=== PATIENT | female | born 1995 | race Hispanic/Latino ===

== ENCOUNTER 2019-02-26 12:13 | Inpatient (IN) | payer SELFPAY ==
[2019-02-26 13:44] LABS: #Eosinphils 0.3 thou/uL (0.0-0.7); #Monocytes 0.3 thou/uL (0.11-0.59); #Neutrophils 8.1 thou/uL (1.40-6.50); %Basophils 0.1 % (0.0-1.0); %Eosinophils 2.7 % (0.0-10.0); %Lymphocytes 10.4 % (21.0-51.0); %Monocytes 3.3 % (0.0-10.0); %Neutrophils 83.6 % (42.0-75.0); Hemoglobin 6.3 g/dL (12.0-16.0); Mean Corpuscular HGB CONC 29.9 g/dL (32.0-36.0); Mean Corpuscular Hemoglobin 19.1 pg (27.0-31.0); Mean Corpuscular Volume 63.9 fL (78.0-98.0); Mean Platelet Volume 6.7 fL (7.4-10.4); Platelet Count 127 thou/uL (130-400); RBC Distribution Width 20.2 % (11.5-14.5); White Blood Cell (WBC) Count 9.6 thou/uL (4.8-10.8)
[2019-02-26 13:51] LABS: BHCG - Serum Negative (NEGATIVE); Pregs Control Background? CLEAR/WHITE (CLR/WHITE); Pregs Control Bar Appear? YES (CONTROL BAR)
[2019-02-26 14:03] LABS: ALT (SGPT) 13 U/L (8-55); AST (SGOT) 17 U/L (5-34); Albumin 3.8 g/dL (3.5-5.0); Alkaline Phosphatase 115 U/L (40-110); Anion Gap 10 mmol/L (10-20); BUN (Urea Nitrogen) 14 mg/dL (7.0-18.7); Calc. Creatinine Clearance 0 mL/min (70-130); Calcium 8.8 mg/dL (7.8-10.44); Carbon Dioxide 24 mmol/L (22-29); Chloride 107 mmol/L (98-107); Estimated GFR-MDRD Greater than 90; Globulin 3.3 g/dL (2.4-3.5); Glucose 126 mg/dL (70-105); Potassium 4.1 mmol/L (3.5-5.1); Protein, Total 7.1 g/dL (6.0-8.3); Sodium 137 mmol/L (136-145)
[2019-02-26 14:04] LABS: Anisocytosis SLIGHT = 6-15 cells (100X) (0-5/hpf); Elliptocytes SLIGHT = 2-5 cells (100X) (0-1/hpf); Hypochromia SLIGHT = 6-15 cells (100X) (0-5/hpf); Microcytosis MODERATE=15-30 cells (100X) (0-5/hpf)
[2019-02-26 14:05] LABS: Platelet Morphology Comment Appears Decreased
[2019-02-26 14:25] LABS: Hemoglobin 5.3 g/dL (12.0-16.0)
[2019-02-26 15:51] LABS: Bilirubin Small (Negative); Blood, Urine Large (Negative); Glucose, Urine (Dipstick) Negative (Negative); Leukocyte Negative (Negative); Nitrite Negative (Negative); Protein, Urine (Dipstick) > or equal to 300 mg/dL (Neg-Trace)
[2019-02-26 15:57] LABS: Clarity Cloudy (Clear)
[2019-02-26 16:01] LABS: Bacteria/HPF Rare-Few HPF (None Seen); RBC/HPF Greater than 50 HPF (0-3); WBC/HPF 0-3 HPF (0-3)
[2019-02-26] MEDS ORDERED: Tranexamic Acid 650 MG TAB PO SCH (18:15)
[2019-02-26] MEDS ORDERED: Ondansetron ODT 4 MG TAB PO PRN (19:43)
[2019-02-26] MEDS ORDERED: Ondansetron ODT 4 MG TAB SL PRN (19:57)
[2019-02-26] MEDS ORDERED: Acetaminophen 325 MG TAB PO PRN (19:57)
[2019-02-26] MEDS ORDERED: Ondansetron PF 4 MG/2 ML Vial IVP PRN (19:57)
[2019-02-26] MEDS ORDERED: HYDROcodone/Acetaminophen 5/325 mg Tablet PO PRN ×2 (19:57)
[2019-02-26] MEDS: Sodium Chloride 0.9% 1,000 ML IV SCH (21:03)
[2019-02-26 21:10] VITALS: BMI 38.5
[2019-02-27] MEDS: Sodium Chloride 0.9% 1,000 ML IV SCH (05:42)
[2019-02-27] MEDS ORDERED: FLU VACC QS2019-20(6MOS UP)/PF 60 MCG/0.5 ML SYRINGE IM ONE (09:00)
[2019-02-27 10:14] LABS: #Eosinphils 0.2 thou/uL (0.0-0.7); #Lymphocytes 0.9 thou/uL (1.20-3.40); #Monocytes 0.2 thou/uL (0.11-0.59); #Neutrophils 2.3 thou/uL (1.40-6.50); %Basophils 0.5 % (0.0-1.0); %Eosinophils 5.5 % (0.0-10.0); %Lymphocytes 24.8 % (21.0-51.0); %Monocytes 5.1 % (0.0-10.0); %Neutrophils 64.2 % (42.0-75.0); Anisocytosis SLIGHT = 6-15 cells (100X) (0-5/hpf); Elliptocytes SLIGHT = 2-5 cells (100X) (0-1/hpf); Hemoglobin 7.3 g/dL (12.0-16.0); MDiff Complete? YES; Mean Corpuscular HGB CONC 32.2 g/dL (32.0-36.0); Mean Corpuscular Hemoglobin 22.8 pg (27.0-31.0); Mean Platelet Volume 6.4 fL (7.4-10.4); Microcytosis SLIGHT = 6-15 cells (100X) (0-5/hpf); Platelet Count 92 thou/uL (130-400); Platelet Morphology Comment Appears Decreased; Polychromasia MODERATE = 3-4 cells (100X) (0-2/hpf); RBC Distribution Width 22.1 % (11.5-14.5); Schistocytes SLIGHT = 2-5 cells (100X) (0-1/hpf); Target Cells SLIGHT = 2-5 cells (100X) (0-1/hpf); Tear Drops SLIGHT = 2-5 cells (100X) (0-1/hpf); White Blood Cell (WBC) Count 3.5 thou/uL (4.8-10.8)
--- NOTE | 2019-02-27 12:35 | ULT ---
US Pelvic History: Menorrhagia. Anemia Comparison: Pelvic ultrasound 2016 Findings: Real-time grayscale and color evaluation of the pelvis performed transabdominal approach. The uterus measures 7.3 x 3.1 x 4.5 cm. Right ovary measures 2.8 x 2.5 x 2.9 cm and the left ovary me asures 2.5 x 1.9 x 2.9 cm. Adequate vascular flow to both ovaries. No free fluid within the pelvis. Endometrial thickness is 1.2 cm. Impression: Normal examination of the pelvis.
[2019-02-27 15:53] VITALS: TEMP 98.6
--- NOTE | 2019-02-27 16:01 | SS ---
This is a same-day admission and discharge summary. REASON FOR ADMISSION: Severe menorrhagia with acute blood loss anemia. HISTORY OF PRESENTING ILLNESS: The patient gives history of feeling very tired while she was driving to work yesterday. Finally, she could not drive as she was losing focus. The patient almost fainted, and her coworkers brought her to the emergency room. She admits to having irregular periods from the age of 20 years. Her menses usually last for 2 weeks. She has one week of heavy periods. She says she changes her pads 5 to 7 times a day. She was hospitalized 2-1/2 years back for similar issues and has not followed up with her [facility]EDER in the past. She was given oral contraceptive pills 2-1/2 years back when she had similar issue. Her menses have currently stopped completely after receiving tranexamic acid tablets in the ER. Her current cycle started 3 days back. PAST MEDICAL AND SURGICAL HISTORY: Chronic iron-deficiency anemia, chronic menorrhagia, tonsillectomy, previous hospitalization 2-1/2 years back for similar issue/menorrhagia. CURRENT MEDICATIONS: Oral iron daily. ALLERGIES: NO KNOWN DRUG ALLERGIES. PERSONAL HISTORY: Does not abuse alcohol or drugs. No history of smoking. She is not sexually active and has never been in the past. No prior Pap smears. FAMILY HISTORY: Both parents are healthy as far as she knows. CODE STATUS: Full. [id number] is her parents. REVIEW OF SYSTEMS: CONSTITUTIONAL: Negative for weight loss or gain, ability to conduct usual activities. SKIN: Negative for rash, itching. EYES: Negative for double vision, pain. ENT/MOUTH: Negative for nose bleeding, neck stiffness, pain, tenderness. CARDIOVASCULAR: Negative for palpitations, dyspnea on exertion, orthopnea. RESPIRATORY: Negative for shortness of breath, wheezing, cough, hemoptysis, fever or night sweats. GASTROINTESTINAL: Negative for poor appetite, abdominal pain, heartburn, nausea , vomiting, constipation, or diarrhea. GENITOURINARY: Negative for urgency, frequency, dysuria, nocturia. MUSCULOSKELETAL: Negative for pain, swelling. NEUROLOGIC/PSYCHIATRIC: Negative for anxiety, depression. ALLERGY/IMMUNOLOGIC: Negative for skin rash, bleeding tendency. PHYSICAL EXAMINATION: GENERAL: The patient is a 23-year-old female who is currently not in any acute distress. VITAL SIGNS: Blood pressure 110/62, pulse 86 per minute, respiratory rate 18 per minute, temperature 98.6 degrees Fahrenheit, and saturating 98% on room air. NECK: Supple. No elevated JVD. HEENT: Eyes; extraocular muscles intact. Pupils reacting to light. Oral cavity, mucous membranes are pale. No exudates or congestion. CARDIOVASCULAR SYSTEM: S1 and S2 heard. Regular rhythm. RESPIRATORY: Air entry 1+ bilateral. No rales or rhonchi. ABDOMEN: Soft. Bowel sounds heard. No tenderness, rigidity, or guarding. EXTREMITIES: No peripheral edema or calf tenderness. VASCULAR SYSTEM: Peripheral pulses, 2+ bilateral. No ischemic ulcerations or gangrene. CENTRAL NERVOUS SYSTEM: No gross focal deficits noted. The patient is alert, awake, and oriented well. PSYCHIATRIC SYSTEM: The patient's mood is euthymic. No hallucinations or delusions. LABORATORY DATA: Initial H and H were 6.3 and 21 with platelet count of 127. Her repeat H and H were 5.3 and 17 at 2 p.m. yesterday. This morning at 9 a.m., after receiving 3 units of packed cells, the patient's H and H are 7.3 and 22 with platelet count of 92, MCV is 91, BUN 14, creatinine 0.7, and serum glucose 126. Serum test is negative. TSH 1.69. Albumin is 3.8. DIAGNOSTIC DATA: EKG done, shows normal sinus rhythm at 97 beats per minute. Pelvic ultrasound done showed normal examination of the pelvis with endometrial thickness of 1.2 cm. Uterus measures 7.3 x 3.1 x 4.5 cm. Right and left ovaries are within normal limits and has adequate vascular flow. No free fluid within the pelvis. CLINICAL IMPRESSION AND PLAN: The patient has been evaluated by Dr. Sommer, OB /SANDBLASTER SUPERVISOR in the hospital. She has been prescribed conraceptive tablets to take daily. The patient to continue ferrous sulfate 325 mg daily. She has received 3 units of packed cells during her stay here. She is hemodynamically stable, ambulating in the room. The patient was strongly advised to follow up with [facility]ER in 1 to 2 weeks. She has had chronic history of menorrhagia and chronic anemia as well. She is currently hemodynamically stable. She likely needs to continue oral iron indefinitely until her hemoglobin reaches more than 11 g. She was counseled to follow up with a primary care physician in 1 week. Please note, this is a same- day admit and discharge under observation status. Job ID: [id number] MTDD
--- NOTE | 2019-03-02 05:22 | PQF ---
[facility] [employer] MARIAH Navarro TONI MD [id number] CLINICAL DOCUMENTATION CLARIFICATION FORM: POST DISCHARGE Addendum to original discharge summary date: ____ Late entry note date: __ DATE: 03/02/19 ATTN: Víctor Bourgeois Please exercise your independent, professional judgment in responding to the clarification form. Clinical indicators are provided on the bottom of this form for your review Kindly clarify regarding anemia Please check appropriate box(s): [ ] Acute blood loss anemia [ ] Chronic Anemia: [ ] Blood loss [ ] Hemolytic [ ] Simple [ ] Due to Vitamin B12 Deficiency [ ] Other [ ] Anemia of Chronic Disease (please specify) [ ] Other diagnosis [ ] Unable to determine For continuity of documentation, please document condition throughout progress notes and discharge summary. Thank You. CLINICAL INDICATORS - SIGNS / SYMPTOMS / LABS Reason for admission is acute blood loss anemia - H and P ED impression is severe anemia and hypotension - ED report Hemoglobin/hematocrit is 5.3/17.6 on 02/26 and 7.3/22.7 on 02/27 RISK FACTORS Dysfunctional uterine bleeding - ED report TREATMENTS: Transfusion of RBCs done 02/26 and 02/27 - Blood bank (This form is maintained as a part of the permanent medical record) 2014 [email or web address]. All Rights Reserved [email or web address] [phone] MTDD
--- NOTE | 2019-03-02 08:17 | CON ---
DATE OF CONSULTATION: 02/27/2019 REASON FOR CONSULTATION: Vaginal bleeding and acute anemia. HISTORY OF PRESENT ILLNESS: The patient is a 23-year-old nulliparous female, who presented to the emergency room after having a syncopal episode at work and was noted to have significant anemia with a hemoglobin of 5.3 and hematocrit of 17.6. The patient was transfused a total of 3 units of packed red blood cells and given TXA. I was consulted the day after she presented for more long-term management. At the time of my evaluation, the patient had only spotting and near resolution of her heavy bleeding. We did review her menstrual history. She reports heavy periods since age of 20, regular and monthly. She did state that her period this month has started 3 days ago, but it was extremely heavy which was out of the ordinary. She has been on control in the past for menstrual regulation, but discontinued on her own due to lack of compliance of daily use. 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 This period was different in that she was requiring 8 pads a day with her pad being completely saturated. She reports that yesterday she was at work and began feeling lightheaded and dizzy and weak and had tried hydrating herself and resting, however, upon attempting to enter the van, the patient collapsed to the ground without hurting herself. She was given assistance and then brought to the emergency room for evaluation. She denies any prior history of blood transfusions. She does report at age 20 that she had heavy periods for which she was placed on control pills. PAST MEDICAL HISTORY: Iron deficiency. PAST SURGICAL HISTORY: Tonsillectomy. PSYCHIATRIC HISTORY: Depression. SOCIAL HISTORY: Denies drug, alcohol, or tobacco use. ALLERGIES: NO KNOWN DRUG ALLERGIES. MEDICATIONS: Oral iron. REVIEW OF SYSTEMS: Per HPI. PHYSICAL EXAMINATION: VITAL SIGNS: Reviewed and within normal limits. GENERAL: The patient appears to be in no acute distress. She is alert, oriented, cooperative, and pleasant to interact with. She is sitting up in chair, having breakfast. ASSESSMENT AND PLAN: We spent about 20 minutes talking about her history and discussing the role of control pills, its potential side effects and benefits in her situation. The patient is not sexually active and would not be using these as a control measure. The patient is on day 3 or 4 of her cycle and is timing well for beginning her control pills now. The patient is without insurance. I have recommended that she be started on Sprintec as this can be purchased for with minimal cost at most pharmacies nowadays. I have also asked that she follow up with KEY OPERATOR in 4 to 6 weeks to make sure that she is tolerating her pills well. The patient had an opportunity to ask questions and she has been advised she can return to work just as soon as she is feeling up to it. Job ID: [id number]
--- NOTE | 2019-03-07 13:13 | EKG ---
Test Reason : Blood Pressure : / mmHG Vent. Rate : 097 BPM Atrial Rate : 097 BPM P-R Int : 138 ms QRS Dur : 074 ms QT Int : 346 ms P-R-T Axes : 029 051 028 degrees QTc Int : 439 ms Normal sinus rhythm Normal ECG Confirmed by KLEVER DOMÍNGUEZ MD ([id number]), purchasing expeditor SOWMYA MAX ([id number]) on 03/07/2019 1:13:09 PM Referred By: Confirmed By:KLEVER DOMÍNGUEZ MD
== END 2019-02-27 16:03 | disposition home or self-care (01) | DRG 761 ==
LOC: ERS 12:13 → IMCU/EMU 18:40
PROVIDERS: ADMIT Internal Medicine; ATTEND Internal Medicine
PROC: 30233N1 Transfusion of Nonautologous Red Blood Cells into Peripheral Vein, Percutaneous Approach (ICD-10-PCS; principal; 2019-02-26)
DX: N92.0 Excessive and frequent menstruation with regular cycle (principal); D64.9 Anemia, unspecified; F32.9 Major depressive disorder, single episode, unspecified; Z90.89 Acquired absence of other organs
CPT/HCPCS: 36415; 36430; 76856; 80053; 81003; 81015; 84443; 84703; 85025; 85060; 86850; 86900; 86901; 93005; 96360; 96361; P9016